=== PATIENT | female | born 1965 | race Caucasian/White ===

== ENCOUNTER → 2024-01-02 15:14 | Outpatient (BNVA) | payer MEDICARE, SELFPAY | PROVIDERS: Visit Provider Internal Medicine Cardiovascular Disease | DX: I49.8 Other specified cardiac arrhythmias (principal); R07.9 Chest pain, unspecified | CPT/HCPCS: 93005; 99204 ==

== ENCOUNTER 2024-02-13 12:35 | Outpatient (CLI) | payer MEDICARE, SELFPAY ==
--- NOTE | 2024-02-13 | ECG_ITS ---
[facility] Test Date: 2024-02-13 Pat Name: Graciela Saldana Department: Room: Gender: Female Nursing Student: : 1965 Requested By: Patrica Skaggs Order Number: [id number] Pepper MD: Patrica Skaggs M.D. Interpretive Statements Lung unchanged pre/post procedure; Intraprocedure shortess of breath; Symptoms resoled by discharge PROCEDURE: At the baseline, the patient's blood pressure was 131/84 with a heart rate of 79. The baseline electrocardiogram showed normal sinus rhythm with normal ST-Ts.. The patient exercised for 6 minutes and 14 seconds on a standard Jerald protocol. Patient attained a maximum heart rate of 151 beats per minute(92% of the maximum predicted heart rate) with a blood pressure at the peak exercise of 170/71 mm Hg. The EKG at the peak exercise revealed no significant ischemic changes. Patient did not have any chest pain or any significant cardiac arrhythmias with the exercise During the recovery phase, there were no new changes. Blood pressure at the end of the recovery phase was 144/89 mm Hg with a heart rate of 105 per minute. CONCLUSION: 1. No significant EKG changes with the treadmill exercise 2. No exercise-induced chest pain or cardiac arrhythmia 3. Fair exercise tolerance, attained a maximum of 10.2 METs Electronically Signed On 02-13-2024 20:00:16 HATCHERY WORKER by Patrica Skaggs M.D. [email or web address]
[2024-02-13 12:38] VITALS: BMI 31.4
--- NOTE | 2024-02-13 12:50 | USCV_ITS ---
Graciela Saldana Age: 58 Gender: F : 1965 Exam Date: 02/13/2024 13:22 Ordering Phys: Patrica Skaggs MD ([email or web address]) Technologist: CT [place]am [place] [facility] [place]: BP: 119 / 73 HR: 70 Rhythm: Sinus Technical Quality: Adequate MEASUREMENTS (Male / Female) Normal Values 2D ECHO LVOT Diameter 2.1 cm LV Ejection Fraction MOD 4C 64.3 % LV Ejection Fraction MOD 2C 53.0 % LV Ejection Fraction 2C AL 58.6 % LA Diameter 3.0 cm RA Systolic Volume 4C AL 30.6 ml RA Systolic Volume 4C MOD 31.1 ml LA Sys Volume AL 45.1 cm cubed LA Sys Volume Index AL 21.0 cm cubed/m squared Aorta at Sinotubular Diameter 2.3 cm IVC Diameter 2.0 cm M-MODE LA Ao Ratio MM 1.4 AV Cusp Separation MM 1.7 cm DOPPLER AV Peak Velocity 96.0 cm/s LVOT Peak Velocity 80.0 cm/s AV Area Cont Eq vti 3.9 cm squared AV Area Cont Eq pk 3.0 cm squared MV Peak Velocity 79.0 cm/s MV Area PHT 3.9 cm squared Mitral E to A Ratio 0.9 TR Peak Velocity 154.0 cm/s TR Peak Gradient 9.5 mmHg TV Peak E Velocity 59.0 cm/s PV Peak Velocity 91.5 cm/s FINDINGS Left Ventricle Normal left ventricular size and systolic function, EF 64%.no regional wall motion abnormalities. Mild left ventricular hypertrophy. Grade I/IV diastolic dysfunction (abnormal relaxation filling pattern), normal to mildly elevated filling pressures. Right Ventricle The right ventricle is normal in size and function. Right Atrium The right atrium is normal in size. Left Atrium The left atrium is normal in size. Mitral Valve Trace mitral valve regurgitation. Aortic Valve No gross abnormalities noted Tricuspid Valve No gross abnormalities noted Pulmonic Valve No gross abnormalities noted Pericardium Normal pericardium without effusion. Aorta Normal aortic annulus size. IVC Normal inferior vena cava. CONCLUSIONS Normal left ventricular size and systolic function, EF 64%.no regional wall motion abnormalities. Mild left ventricular hypertrophy. Grade I/IV diastolic dysfunction (abnormal relaxation filling pattern), normal to mildly elevated filling pressures. Trace mitral valve regurgitation. There is no pericardial effusion. There are no intracardiac masses. No similar previous studies are available for comparison Dr Patrica Skaggs MD FACC (Electronically Signed) Final Date: 23 February 2024 16:04 S
[2024-02-13 14:27] VITALS: BP 132/65; PULSE 89
== END 2024-02-13 12:36 | disposition home or self-care (01) ==
PROVIDERS: PCP Nurse Practitioner Acute Care; Visit Provider Internal Medicine Cardiovascular Disease
DX: I50.30 Unspecified diastolic (congestive) heart failure (principal); R06.09 Other forms of dyspnea; R07.9 Chest pain, unspecified; R06.02 Shortness of breath
CPT/HCPCS: 93017; 93306